=== PATIENT | male | born 1955 | race Caucasian/White ===

== ENCOUNTER → 2018-05-09 | Day surgery (SDC) | payer OTHER ==
[~2018-05-09] MED LIST: ASPIRIN ENTERI325 MG PO; ATENOLOL50 MG PO; CLONIDINE HCL0.2 MG PO; FENTANYL CITRATE/PF 100MCG/2 ML INJ ONE; GLUCOPHAGE1000 MG PO; HUMULIN-R100 UNITS/ SQ; HYDROCHLOROTHIA25 MG PO; HYDROCODONE/APAP 7.5MG-325MG 1 EA TAB ONE; JANUMET 50-1,01 EACH PO; KETAMINE HCL INJ 50 MG/ML 10 ML VIAL ONE; LANTUS100 UNITS/ SC; LIDOCAINE 1% W/EPINEPHRINE 20 ML VIAL ONE; LOSARTAN POTAS100 MG PO; LOSARTAN-HCTZ1 EAC1 PO; LYRICA50 MG PO; MIDAZOLAM HCL 2 MG/2 ML VIAL ONE; NORCO 5-325 TA1 EACH PO; NORVASC10 MG PO; PLAVIX75 MG PO; PROPOFOL IV EMULSION 10 MG/ML 20 ML VIAL ONE; TRESIBA FLEXTOUCH SQ; Z.0.CLEOCIN HCL300 M; Z.0.GLUCOPHAGE500 MG; Z.1.BENICAR HCT 401 PO; [UNRECOGNIZED DRUG - OTHER]
[2018-05-09 09:28] LABS: BASOPHILS # (AUTO) 0.2 (0.0-0.1); BASOPHILS % 1.2 % (0.0-1.0); EOSINOPHILS # (AUTO) 0.3 (0.0-0.4); EOSINOPHILS % 2.4 % (0.0-6.0); HEMATOCRIT 50.3 % (38.2-49.6); HEMOGLOBIN 16.9 g/dL (14.0-18.0); LYMPHOCYTES # (AUTO) 1.7 (1.0-3.2); LYMPHOCYTES % 14.1 % (18.0-39.1); MEAN CORPUSCULAR HEMOGLOBIN 31.9 pg (28-32); MEAN CORPUSCULAR HGB CONC 33.6 g/dL (31-35); MEAN CORPUSCULAR VOLUME 94.9 fL (81-99); MONOCYTES # (AUTO) 1.3 (0.2-0.8); MONOCYTES % 10.6 % (4.4-11.3); NEUTROPHILS # (AUTO) 8.6 (2.1-6.9); NEUTROPHILS % 70.6 % (38.7-80.0); PLATELET COUNT 215 x10e3/uL (140-360); RED CELL DISTRIBUTION WIDTH 12.6 % (11.7-14.4)
[2018-05-09 09:43] LABS: ANION GAP 16.1 mmol/L (8-16); CALCIUM 10.2 mg/dL (8.4-10.2); CREATININE, SERUM 1.49 mg/dL (0.72-1.25); POTASSIUM 4.1 mmol/L (3.5-5.1)
[2018-05-09 12:35] VITALS: BP 145/99
--- NOTE | 2018-05-09 13:33 | Operative Report ---
DATE OF PROCEDURE: May 09, 2018 PREOPERATIVE DIAGNOSIS: Infected cyst of the mid back. POSTOPERATIVE DIAGNOSIS: Infected cyst of the mid back. OPERATION PERFORMED: Incision and drainage of infected cyst of the mid back. ANESTHESIA: Local 1% Xylocaine and MAC. COMPLICATIONS: None. ESTIMATED BLOOD LOSS: Minimal. DESCRIPTION OF PROCEDURE: With the patient lying in bed in the lateral position, under good IV sedation, the back was prepped with Betadine solution and draped in the usual manner. The area of the cyst, which was about 5 x 6 cm in size, was then infiltrated with 1% Xylocaine solution. After this was done, a plug of skin in the center of the cyst was then excised all the way down into the cyst itself. Immediately, some purulent material and a lot of sebaceous content were obtained. All of this was aspirated and then completely debrided, and all of the necrotic material was removed. After this was done, hemostasis was ascertained. The wound was then irrigated with dilute Betadine solution and packed with half-inch iodoform gauze. A dressing was applied. The sponge, lap and needle count was correct. Patient tolerated the procedure well and returned to the recovery room in stable condition. Job#: [id number]
== END | disposition home or self-care (01) ==
LOC: OR 08:10
PROVIDERS: ATTEND Surgery
DX: L72.8 Other follicular cysts of the skin and subcutaneous tissue (principal); Z89.429 Acquired absence of other toe(s), unspecified side; G62.9 Polyneuropathy, unspecified; I10 Essential (primary) hypertension; E11.9 Type 2 diabetes mellitus without complications; N20.0 Calculus of kidney; Z88.2 Allergy status to sulfonamides; Z79.82 Long term (current) use of aspirin; Z79.4 Long term (current) use of insulin; Z86.73 Personal history of transient ischemic attack (TIA), and cerebral infarction without residual deficits
CPT/HCPCS: 10060; 36415; 80048; 82948; 85025; 93005; J2250; J2704

== ENCOUNTER 2018-11-26 13:19 | Inpatient (IN) | payer MEDICARE, OTHER ==
[~2018-11-26] VITALS: Ht 177.8 cm; Wt 96.8 kg
[~2018-11-26 13:19] MED LIST changes: -FENTANYL CITRATE/PF 100MCG/2 ML INJ ONE; -HYDROCODONE/APAP 7.5MG-325MG 1 EA TAB ONE; -KETAMINE HCL INJ 50 MG/ML 10 ML VIAL ONE; -LIDOCAINE 1% W/EPINEPHRINE 20 ML VIAL ONE; -MIDAZOLAM HCL 2 MG/2 ML VIAL ONE; -PROPOFOL IV EMULSION 10 MG/ML 20 ML VIAL ONE
[2018-11-26] MEDS ORDERED: SODIUM CHLORIDE 0.9% 1000ML 1,000 ML IV STA (13:33)
[2018-11-26 14:02] LABS: INR 0.9; PROTHROMBIN TIME 12.6 seconds (11.9-14.5)
[2018-11-26 14:03] LABS: PARTIAL THROMBOPLASTIN TIME 26.5 seconds (23.8-35.5)
[2018-11-26] MEDS ORDERED: FISH OIL 1,0001 EAC3 PO (14:10)
[2018-11-26 14:11] LABS: ALBUMIN 3.5 g/dL (3.5-5.0); ALBUMIN/GLOBULIN RATIO 0.8 (0.8-2.0); ANION GAP 15.9 mmol/L (8-16); CALCIUM 10.4 mg/dL (8.4-10.2); CREATININE, SERUM 1.32 mg/dL (0.72-1.25); POTASSIUM 3.9 mmol/L (3.5-5.1)
[2018-11-26 14:13] LABS: BASOPHILS # (AUTO) 0.1 (0.0-0.1); BASOPHILS % 0.8 % (0.0-1.0); EOSINOPHILS # (AUTO) 0.2 (0.0-0.4); EOSINOPHILS % 1.9 % (0.0-6.0); HEMATOCRIT 48.6 % (38.2-49.6); HEMOGLOBIN 15.8 g/dL (14.0-18.0); LYMPHOCYTES # (AUTO) 1.8 (1.0-3.2); MEAN CORPUSCULAR HEMOGLOBIN 31.3 pg (28-32); MEAN CORPUSCULAR HGB CONC 32.5 g/dL (31-35); MEAN CORPUSCULAR VOLUME 96.2 fL (81-99); MONOCYTES # (AUTO) 1.2 (0.2-0.8); MONOCYTES % 9.7 % (4.4-11.3); NEUTROPHILS # (AUTO) 8.7 (2.1-6.9); PLATELET COUNT 257 x10e3/uL (140-360); RED BLOOD COUNT 5.05 x10e6/uL (4.3-5.7); RED CELL DISTRIBUTION WIDTH 12.7 % (11.7-14.4)
[2018-11-26] MEDS: VANCOMYCIN 1GM/NS 250 ML 250 ML IV SCH (14:15)
[2018-11-26] MEDS ORDERED: ONDANSETRON HCL INJ 2MG/ML 2ML 2 MG/ML VIAL IV PRN (14:30)
[2018-11-26] MEDS ORDERED: DEXTROSE 50% SYRINGE 50 ML IV PRN (14:30)
--- NOTE | 2018-11-26 14:33 | Diagnostic Imaging Report ---
RIGHT FOOT - 3 Images HISTORY: Wound, preop COMPARISON: None available. FINDINGS: Bones: Status post indication of the fourth toe. Mild demineralization about the fifth metatarsophalangeal joint and at the head of the fourth metatarsal joint. The cortices of the lateral head of the fifth metatarsal bone, lateral base of the fifth proximal phalanx, and head of the fourth metatarsal bone are slightly indistinct. Joints: Minimal scattered degenerative changes. Soft tissues: Soft tissue swelling with defect at the lateral aspect of the forefoot at the level of the fifth metatarsophalangeal joint. IMPRESSION: Findings compatible with osteomyelitis involving the lateral head of the fifth metatarsal bone and questionable of the lateral base of the fifth proximal phalanx and head of the fourth metatarsal bone. A MRI of the forefoot with and without contrast may be obtained to further evaluate the extent of osteomyelitis. Signed by: Dr. Phi Pennington D.O., M.M.M. on 11/26/2018 2:30 PM
--- NOTE | 2018-11-26 14:35 | Diagnostic Imaging Report ---
A single frontal view of the chest. HISTORY: PRE-OP, wound COMPARISON: None available. DISCUSSION: Portable technique, limits sensitivity of the exam. Soft tissue attenuation partially limits sensitivity of the exam. Tubes/Lines: None Lungs and pleura: Low lung volumes result in bibasilar vascular crowding, accentuation of the pulmonary interstitial markings, central pulmonary vasculature, and the cardiac silhouette. Allowing for these limitations, the findings are as follows: No evidence of a consolidative pneumonia or pulmonary alveolar edema. No definite pleural effusion or pneumothorax is identified. Heart and mediastinum: The cardiomediastinal silhouette appears unremarkable. Bones and soft tissues: Appear unremarkable, given this limited exam. IMPRESSION: No acute radiographic abnormality. Signed by: Dr. Phi Pennington D.O., M.M.M. on 11/26/2018 2:31 PM
--- OUTSIDE RECORDS SUMMARY | 2018-11-26 14:50 | XMS REPORT ---
Author Author [facility] Address Unknown Phone Unavailable Care Team Providers Care Engineering Equipment Operator Name Role Phone Lorraine DE LEON Unavailable Unavailable Problems This patient has no known problems. Allergies, Adverse Reactions, Alerts This patient has no known allergies or adverse reactions. Medications This patient has no known medications. Results Test Description Test Time Test Comments Text Results Atomic Results Result Comments CHEST SINGLE (PORTABLE) 2018-11-26 14:30:00 [place] [address] Patient Name: KEE MCFADDEN MR #: [id number] : 1955 Age/Sex: 63/M Req #: [id number] Adm Physician: Ordered by: ABDOUL DE LEON MD Report #: [id number] Location: ER Room/Bed: Procedure: [id number] DX/CHEST SINGLE (PORTABLE) Exam Date: 11/26/18 Exam Time: 1400 REPORT STATUS: Signed A single frontal view of the chest. HISTORY: PRE- OP, wound COMPARISON: None available. DISCUSSION: Portable technique, limits sensitivity of the exam. Soft tissue attenuation partially limits sensitivity of the exam. Tubes/Lines: None Lungs and pleura: Low lung volumes result in bibasilar vascular crowding, accentuation of the pulmonary interstitial markings, central pulmonary vasculature, and the cardiac silhouette. Allowing for these limitations, the findings are as follows: No evidence of a consolidative pneumonia or pulmonary alveolar edema. No definite pleural effusion or pneumothorax is identified. Heart and mediastinum: The cardiomediastinal silhouette appears unremarkable. Bones and soft tissues: Appear unremarkable, given this limited exam. IMPRESSION: No acute radiographic abnormality. Signed by: Dr. Lenny Pennington D.O., M.M.M. on 11/26/2018 2:31 PM Dictated By: LENNY PENNINGTON DO 1431 Tr anscribed By: WALE on 11/26/18 1431 COPY TO: ABDOUL DE LEON MD FOOT RIGHT COMPLETE 2018-11-26 14:26:00 [place] [address] Patient Name: KEE MCFADDEN MR #: [id number] : 1955 Age/Sex: 63/M Req #: [id number] Adm Physician: Ordered by: ABDOUL DE LEON MD Report #: [id number] Location: ER Room/Bed: Procedure: [id number] DX/FOOT RIGHT COMPLETE Exam Date: 11/26/18 Exam Time: 1400 REPORT STATUS: Signed RIGHT FOOT - 3 Images HISTORY: Wound, preop COMPARISON: None available. FINDINGS: Bones: Status post indication of the fourth toe. Mild demineralization about the fifth metatarsophalangeal joint and at the head of the fourth metatarsal joint. The cortices of the lateral head of the fifth metatarsal bone, lateral base of the fifth proximal phalanx, and head of the fourth metatarsal bone are slightly indistinct. Joints: Minimal scattered degenerative changes. Soft tissues: Soft tissue swelling with defect at the lateral aspect of the forefoot at the level of the fifth metatarsophalangeal joint. IMPRESSION: Findings compatible with osteomyelitis involving the lateral head of the fifth metatarsal bone and questionable of the lateral base of the fifth proximal phalanx and head of the fourth metatarsal bone. A MRI of the forefoot with and without contrast may be obtained to further evaluate the extent of osteomyelitis. Signed by: Dr. Lenny Pennington D.O., M.M.M. on 11/26/2018 2:30 PM Dictated By: LENNY PENNINGTON DO 1430 Transcribed By: WALE on 11/26/18 1430 COPY TO: ABDOUL DE LEON MD
[2018-11-26 15:59] LABS: BILIRUBIN,URINE NEGATIVE (NEGATIVE); CLARITY,URINE CLEAR (CLEAR); COLOR,URINE YELLOW (YELLOW); KETONES,URINE 1+ (NEGATIVE); LEUKOCYTE ESTERASE ,URINE NEGATIVE (NEGATIVE); NITRITE,URINE NEGATIVE (NEGATIVE); PROTEIN,URINE DIPSTICK 2+ (NEGATIVE); URINE UROBILINOGEN 1 mg/dL (0.2 - 1)
[2018-11-26 16:01] VITALS: BP 175/86
[2018-11-26 16:09] LABS: EPITHELIAL CELLS,URINE FEW /LPF; RBC,URINE 0-5 /HPF (0-5); WBC,URINE (MAN) 0-5 /HPF (0-5)
[2018-11-26 16:15] VITALS: BP 175/86
[2018-11-26] MEDS: PIPER-TAZ 3.375 GM 50 ML IV SCH ×2 (16:34→17:16)
[2018-11-26] MEDS: SODIUM CHLORIDE 0.9% 1000ML 1,000 ML IV SCH (16:34)
[2018-11-26 16:40] VITALS: BP 175/86
[2018-11-26] MEDS: INSULIN LISPRO 100 UNIT/1 ML 3ML VIAL SQ SCH ×2 (16:43→22:00)
[2018-11-26] MEDS ORDERED: LOSARTAN POTASS25 MG PO (17:02)
[2018-11-26] MEDS ORDERED: HYDROCHLOROTHIA25 MG PO (17:03)
--- NOTE | 2018-11-26 19:10 | NUR ---
RECEIVED REPORT FROM PREVIOUS NURSE. CALL LIGHT WITHIN REACH. PATIENT IN BED.
[2018-11-26] MEDS: MORPHINE SULFATE INJ 4 MG/ML INJ 1ML IV PRN (19:52)
[2018-11-26 19:58] VITALS: BP 144/68
[2018-11-27] VITALS (8 sets, daily range): BP systolic 131–191; BP diastolic 63–85
[2018-11-27] MEDS: PIPER-TAZ 3.375 GM 50 ML IV SCH ×4 (00:19→17:43)
[2018-11-27] MEDS: SODIUM CHLORIDE 0.9% 1000ML 1,000 ML IV SCH (02:35)
[2018-11-27] MEDS: VANCOMYCIN 1GM/NS 250 ML 250 ML IV SCH ×2 (02:36→15:00)
[2018-11-27 05:25] LABS: BASOPHILS # (AUTO) 0.1 (0.0-0.1); BASOPHILS % 1.1 % (0.0-1.0); EOSINOPHILS # (AUTO) 0.2 (0.0-0.4); HEMATOCRIT 43.1 % (38.2-49.6); HEMOGLOBIN 14.1 g/dL (14.0-18.0); LYMPHOCYTES # (AUTO) 0.8 (1.0-3.2); LYMPHOCYTES % 7.4 % (18.0-39.1); MEAN CORPUSCULAR HEMOGLOBIN 31.6 pg (28-32); MEAN CORPUSCULAR HGB CONC 32.7 g/dL (31-35); MEAN CORPUSCULAR VOLUME 96.6 fL (81-99); MONOCYTES % 9.5 % (4.4-11.3); NEUTROPHILS # (AUTO) 8.3 (2.1-6.9); NEUTROPHILS % 79.4 % (38.7-80.0); PLATELET COUNT 209 x10e3/uL (140-360); RED BLOOD COUNT 4.46 x10e6/uL (4.3-5.7); RED CELL DISTRIBUTION WIDTH 12.6 % (11.7-14.4)
[2018-11-27 05:37] LABS: ANION GAP 9.8 mmol/L (8-16); BLOOD UREA NITROGEN 20 mg/dL (7-26); BUN/CREATININE RATIO 18 (6-25); CALCIUM 9.1 mg/dL (8.4-10.2); CARBON DIOXIDE 25 mmol/L (22-29); CHLORIDE 108 mmol/L (98-107); CREATININE, SERUM 1.11 mg/dL (0.72-1.25); EST GLOMERULAR FILTRATION RATE > 60 ML/MIN (60-); GLUCOSE 73 mg/dL (74-118); POTASSIUM 3.8 mmol/L (3.5-5.1); SODIUM 139 mmol/L (136-145)
--- NOTE | 2018-11-27 07:08 | NUR ---
Gave report to oncoming nurse. Patient is in bed. Call light within reach
[2018-11-27] MEDS: INSULIN LISPRO 100 UNIT/1 ML 3ML VIAL SQ SCH ×4 (07:30→21:00)
[2018-11-27] MEDS ORDERED: NIFEDIPINE CR 30 MG TAB PO ONE (09:30)
[2018-11-27] MEDS: HYDROCODONE/APAP 5MG-325MG TAB PO PRN ×2 (10:05→17:58)
[2018-11-27] MEDS ORDERED: CHOLESTYRAMINE 4 GM PACKET PO PRN (15:45)
--- NOTE | 2018-11-27 16:46 | History and Physical ---
PRIMARY CARE PHYSICIAN: Coleman Merida MD. BRANCH OFFICE ADMINISTRATOR: Husam Mulligan DPM. CHIEF COMPLAINT: Right infected diabetic foot ulcer, failed outpatient treatment. HISTORY OF PRESENT ILLNESS: A 63-year-old male, who has been going on with the right foot infected diabetic foot ulcer, started as a small lesion and progressed to an ulcer associated with right foot infection and swelling. The patient failed outpatient treatment with oral antibiotics. The patient is now in the hospital with profound infection of the right foot with diabetic foot ulcer, open wound. There is redness along the wound on the superior lateral side of the right foot. The patient is admitted. He has not have any circulation workup for his right lower extremity. Baseline, the patient does have diabetes and hypertension. He is stable at this time on IV antibiotic Zosyn and vancomycin. The patient is seen by Dr. Husam Mulligan, Podiatry consultation. PAST MEDICAL HISTORY: Infected diabetic foot ulcer ongoing for the past month, failed outpatient treatment with oral antibiotics, hypertension, dyslipidemia and diabetes type 2, on insulin therapy, and diabetic neuropathy. PAST SURGICAL HISTORY: Amputation of the right 4th toe. SOCIAL HISTORY: The patient does not smoke or use alcohol. No recreational drugs. ALLERGIES: TO SULFA. HOME MEDICATIONS: Aspirin, HCTZ, [place], losartan, omega-3 fatty acid, Lyrica, and Tresiba FlexTouch. PHYSICAL EXAMINATION: VITAL SIGNS: Temperature is 99, blood pressure 191/85, pulse rate 80, and respirations 22. GENERAL: The patient is not in acute distress. He is awake. HEENT: Normocephalic and atraumatic. Anicteric. NECK: Supple grossly. PULMONARY: Diminished breath sounds, but without any wheezing or rales. CARDIOVASCULAR: Regular rate and rhythm. ABDOMEN: Soft. EXTREMITIES: Right infected diabetic foot ulcer on the lateral superior foot area associated with surrounding redness. There is erythema all up to the lateral dorsal surface of the ankle. There is an open wound and ulcer with infection and drainage. NEUROLOGIC: Diabetic neuropathy. LABORATORY DATA: Sodium 139, potassium 3.8, chloride 108, bicarb 25, BUN 20, creatinine 1.1, and glucose 73. WBC 10.4, hemoglobin 14, hematocrit 43, and platelets 209. PT 12.6, INR 0.9, PTT 26.5, and liver enzymes unremarkable. IMPRESSION: 1. Infected diabetic foot ulcer on the right foot with open wound, surrounding erythema, redness traveling up to the ankle area, associated with diabetes, on insulin therapy, failed outpatient treatment with oral antibiotics. 2. Chronic venous skin changes of bilateral lower extremity. PLAN: IV antibiotics. Circulation workup with ultrasound. Consultation with Dr. Esquivel for circulation evaluation. Consultation with Dr. Husam Mulligan. Continue with wound care. The patient will need surgical intervention. MD BRIDGETT Dubose/CARLEE /[id number]
--- NOTE | 2018-11-27 16:47 | NUR ---
WOUND CARE CONSULTATION - INITIAL EVALUATION Patient admitted from home to ER for worsening wound to right foot. DX: Infected DFU, Right Foot Cellulitis. WBC10.43 HGB14.1 HCT43.1 NEUT%79.4 HBA1c8.8 Alb3.5 Foot X-Ray = Compatible Findings for Osteomyelitis of Lateral head of 5th Metatarsal and 4th metatarsal. Lower Extremity US - Possible evidence of arterial stenosis. BLE Calcification. RLE -MONIKA Distal Absent Waveforms. Wound Culture - Gram + Cocci and Gram Neg Bacilli present - Susceptibility report pending. WC Consulted for Right Lateral Foot wound evaluation and recommendation. Noted Dr. Husam Mulligan DPRicky on the case and pt awaiting evaluation PATIENT VISIT: Patient AAOX4. Calm and in good spirits. Resting in bed. Able to turn and reposition self. Flaco Score 20. Presents with oval ulceration [id number] with 80% tissue necrosis. and 20% granular tissue. Area swollen with redness streaking to dorsal and plantar aspects of mid foot. Purulent drainage noted. Patient on IV ABX. Pulses difficult to palpate, faint. Tenderness to base of wound upon touch. Wound measurements and additional information documented on Wound Assessment portion and is linked to this note. Flaco Score 20 Up ad marlon IMPRESSION; Right Foot 5th Met Head - DFU Grade 3 RECOMMENDATION: Right Lateral Foot - 5th met head- DFU Grade 3: - Irrigate and Cleanse wound with NSS and 4x4 gauze - Apply Betadine moistened gauze dressing daily until evaluated by Husam Esparza. DPM. Thank you for consulting with Wound Care. Addendum: 11/27/18 at 1706 by Avni Lewis RN Amended: Links added.
[2018-11-27] MEDS: OMEGA 3 POLYUNSAT FATTY ACIDS 1000 MG SOFTGEL PO SCH (17:43)
--- NOTE | 2018-11-27 19:20 | NUR ---
rounded with night shift supervisor nurse, patient resting comfortably and in no distress. call medellin within reach and bed in lowest position.
--- NOTE | 2018-11-27 19:56 | NUR ---
RECEIVED PT IN BED AOX3 PT HAS DRESSING AT THE RT FOOT .DENIES PAIN AT THIS TIME RESPIRATIONS ARE EVEN AND UNLABORED .CALL LIGHT WITH IN REACH .CONTINUE TO MONITOR
[2018-11-27] MEDS ORDERED: TRESIBA 20 UNIT SQ SCH (21:00)
[2018-11-27] MEDS: TRESIBA 20 UNIT SQ SCH (21:00)
[2018-11-27] MEDS: PREGABALIN 50 MG CAP PO SCH (21:00)
--- NOTE | 2018-11-27 23:52 | Consultation ---
DATE OF CONSULTATION: 11/27/2018 Cardiology Consultation REQUESTING PHYSICIAN: Dr. Anaya. REASON FOR CONSULTATION: Peripheral arterial disease. HISTORY OF PRESENT ILLNESS: This is a 63-year-old male with history of hypertension, hyperlipidemia, and diabetes mellitus, who presents with complaints of worsening right foot wound. The patient reports he had a blister on the lateral aspect of his right foot, which progressed to an ulcer. This has been ongoing for the last month. He was on outpatient oral antibiotics. However, yesterday he reported the swelling worsened with erythema and presented to the ER for further evaluation. He denies any chest pain, shortness of breath, palpitations, edema, orthopnea, or PND. Cardiology is consulted for evaluation of his peripheral vasculature. REVIEW OF SYSTEMS: Negative except as per HPI. PAST MEDICAL HISTORY: 1. Hypertension. 2. Hyperlipidemia. 3. Diabetes mellitus with diabetic neuropathy. PAST SURGICAL HISTORY: 1. Amputation of his right 4th toe. 2. Right leg surgery secondary to trauma. ALLERGIES: PLEASE SEE EMR. MEDICATIONS: Please see medication list. SOCIAL HISTORY: Denies tobacco, alcohol, or illicit drugs. FAMILY HISTORY: No family history of heart disease. PHYSICAL EXAMINATION: VITAL SIGNS: Temperature 97.8, pulse 82, respiratory rate 20, blood pressure 169/85, and oxygen saturation 97% on room air. GENERAL: Well-developed, well-nourished man in no distress. Awake and alert. HEENT: Normocephalic and atraumatic. Pupils equal. No scleral icterus. NECK: Supple. No thyromegaly or cervical lymphadenopathy. No carotid bruits. LUNGS: Clear to auscultation bilaterally. No wheezes or crackles. CARDIOVASCULAR: Normal rate. Regular rhythm. No murmur. Normal S1, S2. ABDOMEN: Soft, nontender. EXTREMITIES: No edema. Dressing present on the right foot. NEUROLOGIC: Nonfocal exam. LABORATORY DATA: WBC 10.43, hemoglobin 14.1, hematocrit 43.1, and platelets 209. Sodium 139, potassium 3.8, chloride 108, CO2 of 25, BUN 20, and creatinine 1.11. EKG, normal sinus rhythm. Inferior infarct, age undetermined. IMPRESSION: 1. Infected diabetic foot ulcer. 2. Diabetes mellitus. 3. Hypertension. 4. Hyperlipidemia. RECOMMENDATIONS: Ultrasound of bilateral lower extremities have been done. Preliminary review of images suggests occlusion of the distal right anterior tibial artery with distal reconstitution. Recommend peripheral angiogram for further evaluation, likely Tuesday due to lack of catheter builder availability. In the meantime if the patient's blood pressure is not well controlled, resume home cardiac medications likely to need further titration of ARB, we will monitor response to current changes. Thank you for this consult. We will continue to follow. Jaycee Odonnell MD ABS/MODL /[id number]
[2018-11-28 00:23] VITALS: BP 137/80
[2018-11-28] MEDS: PIPER-TAZ 3.375 GM 50 ML IV SCH ×4 (00:41→21:53)
--- NOTE | 2018-11-28 01:53 | Consultation ---
DATE OF CONSULTATION: 11/27/2018 HISTORY OF PRESENT ILLNESS: The patient decided to present to the ED secondary to increasing swelling and erythema associated with right foot with a chronic diabetic ulceration of the lateral aspect of the forefoot. I have been following him to monitor the patient as outpatient, and recently within the past week, he did convey via telephone conversation that the area oozing and the increasing in erythema and thus antibiotics were called in. Apparently, this continued to progress negatively and thus he presented to the ED at this point for further evaluation and recommendations. PAST MEDICAL HISTORY: Remarkable for diabetes mellitus, dyslipidemia, hypertension, and dilated peripheral neuropathy. PAST SURGICAL HISTORY: Right foot fourth digit amputation. SOCIAL HISTORY: Denies any alcohol, tobacco, or illicit drug abuse. ALLERGIES: TO SULFA. HOME MEDICATIONS: Please MAR for current medication list. PHYSICAL EXAMINATION: VITAL SIGNS: Stable. He is afebrile. GENERAL: Alert and oriented x3, and is not in acute distress. HEENT: Normocephalic and atraumatic. Anicteric. ABDOMEN: Soft, nontender, and nondistended. RESPIRATORY: Symmetrical expansion. No distress. PSYCHIATRIC: Normal affect. EXTREMITIES: Indeed, there is erythema associated with right forefoot with faint, but palpable pulses, erythema encompassing the forefoot, particularly lateral aspect of the forefoot progressing out for the midfoot or slightly to the hind foot laterally. There is indeed an ulceration on the lateral aspect of the foot, the plantar lateral aspect overlying the fifth metatarsal head region with some capsular exposure associated with interactive drainage. DIAGNOSTIC DATA: X-rays are consistent with osteomyelitis, seems to be direct inoculation with the proximal phalanx involved as well as the metatarsal head. LABORATORY DATA: Hemoglobin A1c is 8.8. He was admitted with white blood cell counts of 12.04 and now with 10.43. ASSESSMENT: 1. Diabetic foot infection. 2. Diabetic ulceration. 3. Peripheral neuropathy. 4. Septic ulcers. PLAN: Proceed with IV antibiotics. Offloading local wound care, Betadine wet to dry, further recommendations to follow. Ultimately, may need metatarsal head resection. At this point, this will be a pending clinical course perhaps long-term IV antibiotics and local wound care offloading. Again, further recommendation to follow pending clinical course. VIK Garsia/MODL /[id number]
[2018-11-28] MEDS: HYDROCODONE/APAP 5MG-325MG TAB PO PRN ×2 (02:30→21:51)
[2018-11-28] MEDS: VANCOMYCIN 1GM/NS 250 ML 250 ML IV SCH ×2 (04:00→15:00)
[2018-11-28 04:42] VITALS: BP 137/72
[2018-11-28] MEDS: NIFEDIPINE CR 30 MG TAB PO SCH ×2 (06:00→09:07)
[2018-11-28 06:28] LABS: BASOPHILS # (AUTO) 0.1 (0.0-0.1); BASOPHILS % 1.7 % (0.0-1.0); EOSINOPHILS # (AUTO) 0.7 (0.0-0.4); EOSINOPHILS % 9.1 % (0.0-6.0); HEMOGLOBIN 13.5 g/dL (14.0-18.0); LYMPHOCYTES # (AUTO) 1.2 (1.0-3.2); LYMPHOCYTES % 15.7 % (18.0-39.1); MEAN CORPUSCULAR HEMOGLOBIN 31.7 pg (28-32); MEAN CORPUSCULAR HGB CONC 33.8 g/dL (31-35); MEAN CORPUSCULAR VOLUME 93.9 fL (81-99); MONOCYTES # (AUTO) 0.8 (0.2-0.8); MONOCYTES % 10.3 % (4.4-11.3); NEUTROPHILS # (AUTO) 4.9 (2.1-6.9); NEUTROPHILS % 62.7 % (38.7-80.0); PLATELET COUNT 229 x10e3/uL (140-360); RED BLOOD COUNT 4.26 x10e6/uL (4.3-5.7); RED CELL DISTRIBUTION WIDTH 12.5 % (11.7-14.4)
[2018-11-28 06:43] LABS: ANION GAP 8.5 mmol/L (8-16); BLOOD UREA NITROGEN 13 mg/dL (7-26); BUN/CREATININE RATIO 14 (6-25); CALCIUM 9.2 mg/dL (8.4-10.2); CARBON DIOXIDE 26 mmol/L (22-29); CHLORIDE 106 mmol/L (98-107); CREATININE, SERUM 0.91 mg/dL (0.72-1.25); EST GLOMERULAR FILTRATION RATE > 60 ML/MIN (60-); GLUCOSE 72 mg/dL (74-118); POTASSIUM 3.5 mmol/L (3.5-5.1); SODIUM 137 mmol/L (136-145)
--- NOTE | 2018-11-28 07:16 | NUR ---
pt alert resp even and unlabored at this time, no distress noted pt able to make needs known. call light in reach.
--- NOTE | 2018-11-28 07:29 | NUR ---
PT RESTED DURING THE NIGHT .C/O PAIN AND GIVEN ORDERED PAIN MEDICATION VANCO TROUGH IS 14 .GIVEN VANCOMYCIN .CALL LIGHT WITH IN REACH .CONTINUE TO MONITOR
[2018-11-28] MEDS: INSULIN LISPRO 100 UNIT/1 ML 3ML VIAL SQ SCH ×4 (07:30→21:00)
--- NOTE | 2018-11-28 07:39 | NUR ---
REPORT GIVEN TO THE ONCOMING NURSE
--- NOTE | 2018-11-28 07:39 | NUR ---
REPORT GIVEN TO THE ONCOMING NURSE
[2018-11-28 07:55] VITALS: BP 152/77
[2018-11-28] MEDS: TRESIBA 25 UNIT SQ SCH (09:00)
[2018-11-28] MEDS ORDERED: TRESIBA 25 UNIT SQ SCH (09:00)
[2018-11-28] MEDS ORDERED: LOSARTAN POTASSIUM 25 MG TAB PO SCH (09:00)
[2018-11-28] MEDS ORDERED: LOSARTAN POTASSIUM 100 MG TAB PO SCH (11:15)
[2018-11-28 12:02] VITALS: BP 143/74
[2018-11-28] MEDS ORDERED: ONDANSETRON HCL 4 MG ORAL DISINTEGRATING TAB PO PRN (13:15)
--- NOTE | 2018-11-28 13:15 | Progress Note ---
DATE: 11/28/2018 Cardiology Progress Note SUBJECTIVE: The patient denies chest pain or shortness of breath. OBJECTIVE: VITAL SIGNS: Temperature 97 degrees, pulse 71, respiratory rate 18, blood pressure 152/77, oxygen saturation 98% on room air. GENERAL: Awake, alert, in no acute distress. LUNGS: Clear to auscultation bilaterally. No wheeze or crackles. CARDIOVASCULAR: Normal rate. Regular rhythm. No murmur. Normal S1, S2. ABDOMEN: Soft, nontender. EXTREMITIES: No edema. Dressing present on the right foot. CARDIAC MEDICATIONS: Nifedipine 30 mg p.o. daily, losartan 50 mg p.o. daily, fish oil 2000 mg p.o. daily. LABORATORY DATA: WBC 7.79, hemoglobin 13.5, hematocrit 40, platelets 229. Sodium 137, potassium 3.5, chloride 106, CO2 of 26, BUN 13, creatinine 0.91, hemoglobin A1c 8.6. IMPRESSION: 1. Infected diabetic foot ulcer. 2. Diabetes mellitus. 3. Hypertension. 4. Hyperlipidemia. 5. Peripheral arterial disease. RECOMMENDATIONS: Ultrasound of bilateral lower extremity arteries was suggestive of distal MONIKA occlusion with distal reconstitution. Recommend peripheral angiogram for further evaluation likely tomorrow. The patient's antihypertensive therapy has been restarted, but he remains hypertensive. Increase losartan given his diabetes mellitus. Thank you for this consult. We will continue to follow. Jaycee Odonnell MD ABS/MODL /[id number]
[2018-11-28 15:58] VITALS: BP 135/81
[2018-11-28] MEDS: OMEGA 3 POLYUNSAT FATTY ACIDS 1000 MG SOFTGEL PO SCH (16:45)
--- NOTE | 2018-11-28 19:23 | NUR ---
report given to oncoming nurse, pt stable at shift change.
--- NOTE | 2018-11-28 20:11 | NUR ---
RECEIVED PT IN BED AOX3 .RESPIRATIONS ARE EVEN AND UNLABORED PT IS GETTING IV ABT .CALL LIGHT WITH IN REACH .CONTINUE TO MONITOR
[2018-11-28 20:23] VITALS: BP 133/73
[2018-11-28] MEDS: TRESIBA 20 UNIT SQ SCH (21:00)
[2018-11-28] MEDS: PREGABALIN 50 MG CAP PO SCH (21:56)
[2018-11-29] VITALS (14 sets, daily range): BP systolic 120–171; BP diastolic 62–115
[2018-11-29] MEDS: PIPER-TAZ 3.375 GM 50 ML IV SCH ×4 (02:00→22:20)
[2018-11-29] MEDS: VANCOMYCIN 1GM/NS 250 ML 250 ML IV SCH ×2 (03:00→15:00)
--- NOTE | 2018-11-29 07:23 | NUR ---
REPORT GIVEN TO THE ONCOMING NURSE
[2018-11-29] MEDS: INSULIN LISPRO 100 UNIT/1 ML 3ML VIAL SQ SCH ×4 (07:30→20:54)
[2018-11-29] MEDS: TRESIBA 25 UNIT SQ SCH (09:00)
[2018-11-29] MEDS: NIFEDIPINE CR 30 MG TAB PO SCH (09:00)
[2018-11-29] MEDS: LOSARTAN POTASSIUM 25 MG TAB PO SCH (09:00)
[2018-11-29] MEDS ORDERED: FENTANYL CITRATE/PF 100MCG/2 ML INJ ONE ×2 (14:02→17:15)
[2018-11-29] MEDS ORDERED: LIDOCAINE HCL 2% LOCAL 20 ML VIAL ONE ×2 (14:02→16:04)
[2018-11-29] MEDS ORDERED: HEPARIN SOD/SOD CHLORIDE 2,000 ML ONE (14:02)
[2018-11-29] MEDS ORDERED: MIDAZOLAM HCL 2 MG/2 ML VIAL ONE ×3 (14:02→17:14)
[2018-11-29] MEDS ORDERED: SODIUM CHLORIDE 0.9% 1000ML 1,000 ML ONE (14:03)
[2018-11-29] MEDS ORDERED: IOPAMIDOL 300MG/ML 100 ML INFUS..BTL IV ONE (14:03)
[2018-11-29] MEDS ORDERED: HEPARIN SOD (PORCINE) 1000 UNIT/ML 30ML ONE (16:49)
--- NOTE | 2018-11-29 17:45 | NUR ---
1745 Icu bed ordered for pt transfer high risk bleed Dr isma Saunders Rn Supv notified. Bed disposition 192 awaiting clean. ds/rn
--- NOTE | 2018-11-29 18:15 | NUR ---
181 received pt to Rm #[address] Jaramillo no fix, Left# 6 Fr Arterial line .Last ACT 310 .Next due at 1900. Needs 6hrs bedrest post pull when act lower 160. Rt Femoral sheath 4FR remains in place till PICC line placed. Back to baseline Orientation.Respiration shallow and regular 98% room air. Pt from room #289 going to rm 192. Floor staff informed to gather pt belongings. Pt denies CP or SOB No gross issues pain, pallor pressure or dysrhythmia. Abdomen soft and non tender Denies necessity to defecate or urinate. PPx4 DP/Pd rt Doppler present 1++ Left leg Doppler 2++. 1844 called report to [facility] Transferred to IC per bed vs stable and zoll monitor No gross issue pain pallor or pressure Awaiting PICC line arrival for venous access RT vein sheath to stay in place till arrival. Pt will notify family on arrival to ICU when he has their phone number. ds/rn
--- NOTE | 2018-11-29 19:15 | NUR ---
Pt arrived to ICU from [facility], pt has left arterial sheath and right venous sheath in place. Order for PICC line in computer, consent signed. Pt blood sugar 63, pt AAO x4, states feels fine other than sore back. Pt given orange juice, pt will eat once arterial sheath pulled. Will continue to monitor.
[2018-11-29] MEDS: HYDROCODONE/APAP 5MG-325MG TAB PO PRN (19:34)
--- NOTE | 2018-11-29 20:07 | NUR ---
ACT 200 @20:00
--- NOTE | 2018-11-29 20:12 | Progress Note ---
DATE: 11/29/2018 Cardiology Progress Note SUBJECTIVE: The patient denies chest pain or shortness of breath. OBJECTIVE: VITAL SIGNS: Temperature 97.8 degrees, pulse 86, respiratory rate 18, blood pressure 152/79, and oxygen saturation 98% on room air. GENERAL: Awake and alert, in no acute distress. LUNGS: Clear to auscultation bilaterally. No wheezes or crackles. CARDIOVASCULAR: Normal rate. Regular rhythm. No murmur. Normal S1 and S2. ABDOMEN: Soft and nontender. EXTREMITIES: No edema. Dressing is present on the right foot. CARDIAC MEDICATIONS: 1. Fish oil 2000 mg p.o. daily. 2. Losartan 100 mg p.o. daily. 3. Nifedipine 30 mg p.o. daily. LABORATORY DATA: None today. IMPRESSION: 1. Type 2 diabetic foot ulcer. 2. Diabetes mellitus. 3. Hypertension. 4. Hyperlipidemia. 5. Peripheral arterial disease. RECOMMENDATIONS: Ultrasound of bilateral lower extremity arteries was suggestive of occlusion of the distal MONIKA with reconstitution in the DPA. Recommend peripheral angiogram for further evaluation. Risks and benefits were discussed with the patient, who agrees to proceed. The patient remains hypertensive. However, he has not received his antihypertensive therapy today in preparation for peripheral angiogram. We will monitor blood pressure response. Continue current cardiac medications otherwise. Thank you for this consult. We will continue to follow. Jaycee Odonnell MD ABS/MODL /[id number]
[2018-11-29] MEDS: OMEGA 3 POLYUNSAT FATTY ACIDS 1000 MG SOFTGEL PO SCH (20:13)
[2018-11-29] MEDS: PREGABALIN 50 MG CAP PO SCH (20:53)
[2018-11-29] MEDS: TRESIBA 20 UNIT SQ SCH (21:00)
--- NOTE | 2018-11-29 21:35 | NUR ---
ACT 160 @ 21:30
--- NOTE | 2018-11-29 22:13 | NUR ---
ACT 160 @ 2130. @ 2150 Sheath dcd. Manual pressure held x 12 min with hemostasis. No signs of bleeding or hematoma. Pressure drsg applied.
--- NOTE | 2018-11-29 22:43 | Progress Note ---
DATE: 11/29/2018 Medicine Progress Note Covering for Dr. Anaya. SUBJECTIVE: The patient underwent a right lower extremity angiogram, had some stenosis in the right lower extremity and around the anterior tibia and it was unsuccessful. It seems like the patient had a right ankle injury many years ago, most likely the etiology of that particular issue. OBJECTIVE: VITAL SIGNS: Temperature is 96.1, pulse 80, respiratory rate 17, blood pressure 133/93, pulse ox 99% on room air. GENERAL: Not in acute distress, alert and oriented x3. Cooperative on examination. HEENT: Normocephalic and atraumatic. Eyes; pupils are equal, round, and reactive to light bilaterally. Extraocular movements are intact bilaterally. Throat, no evidence of any erythema or exudates in the posterior pharynx. Has poor dentition. NECK: Supple. Good range of motion PULMONARY: Clear to auscultation bilaterally. No wheezing. No rales. No rhonchi. No crackles appreciated. CARDIOVASCULAR: Positive S1 and S2. No murmurs, rubs, or gallops appreciated. ABDOMEN: Soft, nondistended, and nontender to palpation. Bowel sounds present. MUSCULOSKELETAL: Strength is 5/5 throughout. No evidence of any muscle deficits on examination. NEUROLOGIC: Cranial nerves II through XII grossly intact. No evidence of any muscle deficits on examination. SKIN: Intact. Warm to touch. Good cap refill. PSYCHIATRIC: Normal affect and mood. EXTREMITIES: No edema. Good range of motion throughout. LABORATORY DATA: Lab findings show white count 7.7, hemoglobin 13.5, hematocrit is 40, and platelets of 229. Coagulation; PT 12, INR 0.9, PTT 26. Chemistry; sodium 137, potassium is 3.5, chloride is 106, bicarbonate is 26, anion gap is 8, BUN is 13, creatinine is 0.91, glucose is 64. A1c is 8.6. LFTs were within normal range. MICROBIOLOGY: Wound culture positive for Pseudomonas. Blood cultures, no growth to date. IMPRESSION: 1. Diabetic foot ulcer, infected. 2. Type 2 diabetes. 3. Hypertension. 4. Hyperlipidemia. 5. Severe peripheral arterial disease. PLAN: At this time, the patient underwent angiogram of the right lower extremity, had some occlusion in the anterior tibial, which seems to be unsuccessful according to Cardiology. We will continue with IV antibiotics for now. Local wound care. ID and Cardiology are following closely. Podiatry is also monitoring him as well. Continue same plan of care with no changes. Otherwise, we will get a.m. labs and monitor closely. MD PATSY Granda/CARLEE /[id number]
--- NOTE | 2018-11-29 23:21 | Diagnostic Imaging Report ---
EXAMINATION: CHEST XRAY LINE PLACEMENT INDICATION: PICC placement ^[id number] ^[id number] COMPARISON: 11/26/2018. FINDINGS: TUBES and LINES: Right upper extremity PICC with distal tip projected on the cavoatrial junction. LUNGS: Lungs are hyperinflated. Lungs are clear. There is no evidence of pneumonia or pulmonary edema. PLEURA: No pleural effusion or pneumothorax. HEART AND MEDIASTINUM: The cardiomediastinal silhouette is unremarkable. BONES AND SOFT TISSUES: No acute osseous lesion. Small exostosis off the inferior aspect of the mid left clavicle. UPPER ABDOMEN: No free air under the diaphragm. IMPRESSION: Right upper extremity PICC with distal tip projected on the cavoatrial junction. Signed by: Dr. Henrry Sanchez M.D. on 11/29/2018 11:18 PM
--- NOTE | 2018-11-29 23:24 | NUR ---
PICC line inserted by PICC nurse. Placement confirmed by Xray.
[2018-11-30] VITALS (18 sets, daily range): BP systolic 119–163; BP diastolic 72–100
[2018-11-30] MEDS: HYDROCODONE/APAP 5MG-325MG TAB PO PRN ×3 (00:25→17:40)
--- NOTE | 2018-11-30 00:27 | NUR ---
PICC line ok to use per PICC nurse order. Venous sheath pulled, pressure held for 5 minutes. No hematoma or bleeding noted.
[2018-11-30] MEDS: PIPER-TAZ 3.375 GM 50 ML IV SCH ×4 (01:50→21:21)
[2018-11-30] MEDS: VANCOMYCIN 1GM/NS 250 ML 250 ML IV SCH ×2 (02:55→16:00)
[2018-11-30 05:12] LABS: ANION GAP 7.7 mmol/L (8-16); BLOOD UREA NITROGEN 17 mg/dL (7-26); BUN/CREATININE RATIO 25 (6-25); CARBON DIOXIDE 21 mmol/L (22-29); CHLORIDE 115 mmol/L (98-107); CREATININE, SERUM 0.68 mg/dL (0.72-1.25); EST GLOMERULAR FILTRATION RATE > 60 ML/MIN (60-); GLUCOSE 68 mg/dL (74-118); SODIUM 141 mmol/L (136-145)
[2018-11-30 05:15] LABS: POTASSIUM 2.7 mmol/L (3.5-5.1)
[2018-11-30 05:16] LABS: CALCIUM 6.8 mg/dL (8.4-10.2)
[2018-11-30 06:38] LABS: BASOPHILS # (AUTO) 0.1 (0.0-0.1); BASOPHILS % 1.2 % (0.0-1.0); EOSINOPHILS # (AUTO) 0.4 (0.0-0.4); EOSINOPHILS % 3.7 % (0.0-6.0); HEMOGLOBIN 14.3 g/dL (14.0-18.0); LYMPHOCYTES % 19.8 % (18.0-39.1); MONOCYTES % 10.1 % (4.4-11.3); NEUTROPHILS # (AUTO) 6.7 (2.1-6.9); NEUTROPHILS % 64.3 % (38.7-80.0); PLATELET COUNT 299 x10e3/uL (140-360); RED BLOOD COUNT 4.47 x10e6/uL (4.3-5.7); RED CELL DISTRIBUTION WIDTH 12.8 % (11.7-14.4)
[2018-11-30] MEDS: INSULIN LISPRO 100 UNIT/1 ML 3ML VIAL SQ SCH ×4 (07:30→20:13)
[2018-11-30 07:35] LABS: ANION GAP 13.5 mmol/L (8-16); BLOOD UREA NITROGEN 21 mg/dL (7-26); BUN/CREATININE RATIO 20 (6-25); CALCIUM 9.5 mg/dL (8.4-10.2); CARBON DIOXIDE 23 mmol/L (22-29); CHLORIDE 104 mmol/L (98-107); CREATININE, SERUM 1.07 mg/dL (0.72-1.25); EST GLOMERULAR FILTRATION RATE > 60 ML/MIN (60-); GLUCOSE 93 mg/dL (74-118); SODIUM 137 mmol/L (136-145)
[2018-11-30 07:43] LABS: POTASSIUM 3.5 mmol/L (3.5-5.1)
[2018-11-30] MEDS: TRESIBA 25 UNIT SQ SCH (08:08)
[2018-11-30] MEDS: NIFEDIPINE CR 30 MG TAB PO SCH (08:08)
[2018-11-30] MEDS: LOSARTAN POTASSIUM 25 MG TAB PO SCH (08:08)
--- NOTE | 2018-11-30 11:12 | Progress Note ---
DATE: 11/30/2018 Cardiology Progress Note SUBJECTIVE: The patient denies chest pain or shortness of breath. He underwent peripheral angiogram yesterday with finding of occlusion of the distal right anterior tibial artery which was unable to be revascularized. He was transferred to the ICU overnight for monitoring. OBJECTIVE: VITAL SIGNS: Temperature 98.7 degrees, pulse 96, respiratory rate 19, blood pressure 141/97, and oxygen saturation 98% on room air. GENERAL: Awake, alert, in no acute distress. LUNGS: Clear to auscultation bilaterally. No wheezes or crackles. CARDIOVASCULAR: Normal rate, regular rhythm. No murmur. Normal S1, S2. ABDOMEN: Soft and nontender. EXTREMITIES: No edema. Bilateral groins without hematoma or bruise. MEDICATIONS: Losartan 100 mg p.o. daily, nifedipine 30 mg p.o. daily, fish oil 2000 mg p.o. daily. LABORATORY DATA: WBC 10.32, hemoglobin 14.3, hematocrit 42, platelets 299. Sodium 137, potassium 3.5, chloride 104, CO2 of 23, BUN 21, and creatinine 1.07. Telemetry; normal sinus rhythm. IMPRESSION: 1. Infected diabetic foot ulcer. 2. Diabetes mellitus. 3. Hypertension. 4. Hyperlipidemia. 5. Peripheral arterial disease. RECOMMENDATIONS: A peripheral angiogram was performed with finding of occlusion of the distal right anterior tibial artery. This could not be successfully revascularized, likely due to prior trauma of the right lower extremity. Continue antibiotics and wound care. Continue current cardiac medications. Blood pressure remains elevated. If this persists, we will further increase nifedipine. Continue current cardiac medications otherwise. Thank you for this consult. We will continue to follow. Jaycee Odonnell MD ABS/MODL /[id number]
[2018-11-30] MEDS ORDERED: SODIUM CHLORIDE 0.9% 250ML 250 ML ONE (15:24)
--- NOTE | 2018-11-30 15:33 | NUR ---
CONSULT FOR CALLED AT THIS TIME.
[2018-11-30] MEDS ORDERED: DIPHENOXYLATE/ATROPINE TAB PO PRN (16:15)
[2018-11-30] MEDS ORDERED: LOPERAMIDE HCL 2 MG CAP PO PRN (16:15)
[2018-11-30] MEDS: OMEGA 3 POLYUNSAT FATTY ACIDS 1000 MG SOFTGEL PO SCH (16:31)
--- NOTE | 2018-11-30 17:22 | NUR ---
PT TRANSFERRED TO ROOM 206
--- NOTE | 2018-11-30 19:00 | NUR ---
Rounding done & report received. Patient laying in bed awake & alert, respirations even & unlabored, no distress noted. Patient has right arm upper picc linex2. Wound dressing to right foot noted, C/D/I. Patient denies any issues or needs at this time. Call light within reach & side rails x2 raised.
[2018-11-30] MEDS: TRESIBA 20 UNIT SQ SCH (21:00)
[2018-11-30] MEDS: MORPHINE SULFATE INJ 4 MG/ML INJ 1ML IV PRN (21:21)
[2018-11-30] MEDS: PREGABALIN 50 MG CAP PO SCH (21:21)
[2018-12-01] VITALS (7 sets, daily range): BP systolic 129–147; BP diastolic 61–101
[2018-12-01] MEDS: PIPER-TAZ 3.375 GM 50 ML IV SCH ×3 (02:22→14:21)
[2018-12-01] MEDS: VANCOMYCIN 1GM/NS 250 ML 250 ML IV SCH ×2 (02:55→15:30)
--- NOTE | 2018-12-01 07:00 | NUR ---
BEDSIDE SHIFT REPORT RECEIVED FROM TARI BAILEY. PT DENIES NEEDS AT THIS TIME.
[2018-12-01] MEDS: INSULIN LISPRO 100 UNIT/1 ML 3ML VIAL SQ SCH ×3 (07:30→16:30)
[2018-12-01] MEDS: LOSARTAN POTASSIUM 25 MG TAB PO SCH (08:46)
[2018-12-01] MEDS: TRESIBA 25 UNIT SQ SCH (08:46)
[2018-12-01] MEDS: NIFEDIPINE CR 30 MG TAB PO SCH (08:46)
[2018-12-01] MEDS: HYDROCODONE/APAP 5MG-325MG TAB PO PRN (08:52)
--- NOTE | 2018-12-01 10:37 | NUR ---
EDUCATED ABOUT IMM, SIGNED, FILED IN CHART, WITH COPY LEFT WITH FAMILY AT BEDSIDE.
--- NOTE | 2018-12-01 12:49 | NUR ---
CM MET W DR. GARZA. ORDER GIVEN FOR HOME VANC 1GM IV Q12HR X 8WEEKS, CBC, CHEM PANEL, VANC TR WEEKLY AND CALL/FAX TO DR. GARZA'S OFFICE. MET W THE PT AT THE BEDSIDE TO DISCUSS CHOICE. PT CHOSE [facility]. CHOICE LETTER WA SIGNED AND PLACED IN THE PT'S CHART. INQUIRED ABOUT OUT OF POCKET COSTS. INFORMED PT [facility] WILL RUN HIS INSURANCE AND LET HIM KNOW IF THERE WILL BE ANY OUT OF POCKET COST. VERBALIZED UNDERSTANDING. REFERRAL WAS FAXED TO [facility] @ OFF: [phone] / FAX: [phone].
--- NOTE | 2018-12-01 14:28 | Progress Note ---
DATE: 12/01/2018 Cardiology Progress Note SUBJECTIVE: The patient denies chest pain or shortness of breath. OBJECTIVE: VITAL SIGNS: Temperature 98.8 degrees, pulse is 79, respiratory rate 20, blood pressure 129/61, oxygen saturation 95% on room air. GENERAL: Awake and alert, in no acute distress. LUNGS: Clear to auscultation bilaterally. No wheeze or crackles. CARDIOVASCULAR: Normal rate, regular rhythm. No murmur. Normal S1, S2. ABDOMEN: Soft, nontender. EXTREMITIES: No edema. CARDIAC MEDICATIONS: Losartan 100 mg p.o. daily, nifedipine 30 mg p.o. daily, fish oil 2000 mg p.o. daily. LABORATORY DATA: None today. TELEMETRY: None. IMPRESSION: 1. Infected diabetic foot ulcer. 2. Diabetes mellitus. 3. Hypertension. 4. Hyperlipidemia. 5. Peripheral arterial disease. RECOMMENDATIONS: Peripheral angiogram was performed with finding of occlusion of the distal right MONIKA. This could not be successfully revascularized likely due to prior trauma of the right lower extremity. Continue antibiotics and wound care. Blood pressure is for the most part reasonable for age. Continue current cardiac medications otherwise. Thank you for this consult. We will continue to follow. Jaycee Odonnell MD ABS/MODL /[id number]
--- NOTE | 2018-12-01 16:44 | NUR ---
HOME HEALTH DISCHARGE NOTE PATIENT ADDRESS WHERE SERVICE WILL BE RECEIVED: Priscilla BUTLER PATIENT CONTACT NUMBER: [phone] NAME OF HOME HEALTH COMPANY: [facility] TELEPHONE/FAX NUMBER OF COMPANY: OFF: [phone] / FAX: [phone] ADDRESS OF COMPANY: [id number], [place] [address] SERVICES TO RECEIVE: IV VANCOMYCIN 1 GM Q 12HR X 8WEEKS, CBC, CHEM AND VANC TROUGH WEEKLY BY NURSING ANTICIPATED DATE SERVICES WILL BEGIN: 12/02/2018 Please call the company above if you have not received a call to schedule a home visit within 24 hours of discharge. Addendum: 12/01/18 at 1651 by Mirtha Pace CM [facility] WILL GIVE BEDSIDE NURSE NAME OF HOME HEALTH AGENCY TO PROVIDE NURSING.
--- NOTE | 2018-12-01 17:30 | NUR ---
[facility] RN WITH [facility] AT PT'S BEDSIDE WITH PICC EDUCATION [facility].
[2018-12-01] MEDS: OMEGA 3 POLYUNSAT FATTY ACIDS 1000 MG SOFTGEL PO SCH (18:01)
--- NOTE | 2018-12-01 18:38 | NUR ---
OK FROM STANDPOINT OF DR. BALBUENA TO DISCHARGE HOME.
--- NOTE | 2018-12-01 19:27 | NUR ---
Patient discharge with all belongings. Family here to pickup patient.
--- NOTE | 2018-12-01 20:49 | History and Physical ---
REASON FOR CONSULTATION: Osteomyelitis of the right foot. HISTORY OF PRESENT ILLNESS: This patient is a very pleasant 63-year-old white male with history of diabetes mellitus, history of atherosclerotic disease, history of neuropathy, who has been having right foot ulcer for more than a month. He has been seen by Dr. Mulligan. He took several courses of oral antibiotics without any improvement. He came here for further debridement and IV antibiotics. The patient was seen by Dr. Mulligan. The patient has no fever, no chills, no nausea, no vomiting, and no diarrhea. The patient is currently lying in the bed comfortably. PAST MEDICAL HISTORY: Diabetes mellitus, diabetic foot ulcer, obesity, hypertension, dyslipidemia, neuropathy, peripheral vascular disease, and amputation of the right fourth toe. PAST SURGICAL HISTORY: As above. ALLERGIES: NKA. SOCIAL HISTORY: There is no smoking, drug abuse, or alcohol abuse. FAMILY HISTORY: Diabetes mellitus. REVIEW OF SYSTEMS: HEENT: Negative. PULMONARY: Negative. CARDIAC: Negative. : Negative. GI: Negative. SKIN: There is no other rash. JOINTS: Negative. HOME MEDICATIONS: 1. Hydrochlorothiazide. 2. Twain. 3. Losartan. 4. . 5. Lyrica. LABORATORY DATA: His cultures from the wound show Pseudomonas and Enterococcus faecalis. His white count is 10.32, hemoglobin 14.3, and hematocrit 42. His sodium is 137 and potassium 3.7. Creatinine 1.05. TSH 1.5. Sedimentation rate of 61. The patient had an x-ray of the foot showed compatible with osteomyelitis involving the lateral head of the fifth metatarsal. The patient has been seen by Cardiology and had been seen by Podiatry, Dr. Mulligan. He had a peripheral angiogram, which showed occlusion of the distal right anterior tibial artery. PHYSICAL EXAMINATION: GENERAL: He is currently alert, oriented, does not seem to be in acute distress. VITAL SIGNS: Stable, currently afebrile. HEENT: He is not icteric. NECK: Supple. CHEST: Clear. HEART: S1 and S2. No S3, S4, or murmur. ABDOMEN: Soft. Bowel sounds present. No tenderness. No hepatosplenomegaly. EXTREMITIES: No edema. SKIN: No rash. On the foot, there is no erythema or edema. He has an ulcer, which is noted. IMPRESSION AND PLAN: Osteomyelitis of the right foot. He will need 8 weeks of antibiotic. We will do vancomycin as well as Cipro. Obtain weekly CBC with a chemistry panel with the vancomycin trough. The patient is at risk for amputation. We will follow. Discussed with the patient. Discussed with Case Management. Discussed with the nursing team. MD TRINO Peterson/CARLEE /[id number]
== END 2018-12-01 19:26 | disposition home or self-care (01) | DRG 872 ==
LOC: ER 13:19 → ERHOLD 14:48 → MED/SURG3 15:46 → ICU 11-29 18:33 → MED/SURG2 11-30 17:21
PROVIDERS: ADMIT Internal Medicine; ATTEND Internal Medicine
PROC: B41D1ZZ Fluoroscopy of Aorta and Bilateral Lower Extremity Arteries using Low Osmolar Contrast (ICD-10-PCS; principal; 2018-11-26)
DX: A41.9 Sepsis, unspecified organism (principal); L97.518 Non-pressure chronic ulcer of other part of right foot with other specified severity; E11.51 Type 2 diabetes mellitus with diabetic peripheral angiopathy without gangrene; E11.621 Type 2 diabetes mellitus with foot ulcer; Z79.4 Long term (current) use of insulin; I87.2 Venous insufficiency (chronic) (peripheral); Z89.421 Acquired absence of other right toe(s); B96.5 Pseudomonas (aeruginosa) (mallei) (pseudomallei) as the cause of diseases classified elsewhere; B95.2 Enterococcus as the cause of diseases classified elsewhere; B96.89 Other specified bacterial agents as the cause of diseases classified elsewhere; I70.235 Atherosclerosis of native arteries of right leg with ulceration of other part of foot; I25.2 Old myocardial infarction
CPT/HCPCS: 36247; 36415; 36569; 71045; 75625; 75710; 80048; 80053; 80202; 81001; 82948; 83036; 84443; 85025; 85610; 85730; 87040; 87071; 87186; 87205; 93005; 93925; 96361; 96372; 99284; C1766; C1769; C1887; J1644; J2001; J2250; J2270; J2543; J3370; J7030; J7050; Q9967

== ENCOUNTER 2019-01-11 08:33 | Emergency (ER) | payer MEDICARE ==
[~2019-01-11] VITALS: Ht 177.8 cm; Wt 96.6 kg
[~2019-01-11 08:33] MED LIST changes: +FISH OIL 1,0001 EAC3 PO; +LOSARTAN POTASS25 MG PO
[2019-01-11] MEDS ORDERED: CLINDAMYCIN HC300 MG PO (09:43)
== END 2019-01-11 10:39 | disposition home or self-care (01) ==
LOC: ER 08:33
DX: Z48.00 Encounter for change or removal of nonsurgical wound dressing (principal); I10 Essential (primary) hypertension; E11.9 Type 2 diabetes mellitus without complications; Z86.73 Personal history of transient ischemic attack (TIA), and cerebral infarction without residual deficits
CPT/HCPCS: 99283

== ENCOUNTER 2020-06-04 05:47 | Emergency (ER) | payer MEDICARE ==
[~2020-06-04] VITALS: Ht 177.8 cm; Wt 96.6 kg
[~2020-06-04 05:47] MED LIST changes: +CLINDAMYCIN HC300 MG PO
[2020-06-04] MEDS ORDERED: CLINDAMYCIN PHOS 600 MG/ 4 ML VIAL IM ONE (06:00)
== END 2020-06-04 06:42 | disposition home or self-care (01) ==
LOC: ER 05:58
DX: N49.2 Inflammatory disorders of scrotum (principal); I10 Essential (primary) hypertension; E11.40 Type 2 diabetes mellitus with diabetic neuropathy, unspecified; Z86.73 Personal history of transient ischemic attack (TIA), and cerebral infarction without residual deficits
CPT/HCPCS: 99282

== ENCOUNTER 2020-09-28 20:24 | Inpatient (IN) | payer MEDICARE ==
[~2020-09-28] VITALS: Ht 177.8 cm; Wt 100.9 kg
[2020-09-28] MEDS ORDERED: VANCOMYCIN 1GM/NS 250 ML 250 ML IV SCH (21:15)
[2020-09-28 21:29] LABS: BASOPHILS # (AUTO) 0.2 (0.0-0.1); BASOPHILS % 1.7 % (0.0-1.0); EOSINOPHILS # (AUTO) 0.5 (0.0-0.4); EOSINOPHILS % 5.4 % (0.0-6.0); HEMATOCRIT 48.4 % (38.2-49.6); HEMOGLOBIN 16.6 g/dL (14.0-18.0); LYMPHOCYTES # (AUTO) 1.7 (1.0-3.2); LYMPHOCYTES % 19.3 % (18.0-39.1); MEAN CORPUSCULAR HEMOGLOBIN 32.1 pg (28-32); MEAN CORPUSCULAR HGB CONC 34.3 g/dL (31-35); MEAN CORPUSCULAR VOLUME 93.6 fL (81-99); MONOCYTES # (AUTO) 0.8 (0.2-0.8); MONOCYTES % 9.1 % (4.4-11.3); NEUTROPHILS # (AUTO) 5.5 (2.1-6.9); NEUTROPHILS % 63.1 % (38.7-80.0); PLATELET COUNT 290 x10e3/uL (140-360); RED BLOOD COUNT 5.17 x10e6/uL (4.3-5.7); RED CELL DISTRIBUTION WIDTH 12.5 % (11.7-14.4)
[2020-09-28] MEDS: CEFEPIME HCL 1 GM VIAL IV SCH ×2 (21:30→22:00)
[2020-09-28 21:40] LABS: INR 0.77; PROTHROMBIN TIME 11.3 seconds (11.9-14.5)
[2020-09-28 21:41] LABS: PARTIAL THROMBOPLASTIN TIME 25.5 seconds (23.8-35.5)
[2020-09-28 21:53] LABS: ALBUMIN 3.8 g/dL (3.5-5.0); ALBUMIN/GLOBULIN RATIO 0.8 (0.8-2.0); ANION GAP 17.4 mmol/L (8-16); CALCIUM 9.7 mg/dL (8.4-10.2); CREATININE, SERUM 1.75 mg/dL (0.72-1.25); POTASSIUM 4.4 mmol/L (3.5-5.1)
[2020-09-28] MEDS ORDERED: SODIUM CHLORIDE 0.9% 50ML 50 ML ONE (22:00)
[2020-09-28] MEDS ORDERED: ONDANSETRON HCL INJ 2MG/ML 2ML 2 MG/ML VIAL IV PRN (23:00)
[2020-09-28] MEDS ORDERED: DEXTROSE 50% SYRINGE 50 ML IV PRN (23:00)
[2020-09-29] VITALS (8 sets, daily range): BP systolic 125–161; BP diastolic 77–95
[2020-09-29] MEDS ORDERED: MULTI-VITAMIN1 EACH PO (02:40)
[2020-09-29] MEDS ORDERED: HYDROCODON-ACE1 EAC9 PO (02:40)
[2020-09-29] MEDS ORDERED: APPLE CIDER VI300 MG PO (02:40)
[2020-09-29] MEDS ORDERED: JANUVIA25 MG PO (02:42)
[2020-09-29] MEDS ORDERED: CEFEPIME HCL 1GM 1 GM in SODIUM CHLORIDE 0.9% 50ML 50 ML IV SCH (05:00)
[2020-09-29] MEDS ORDERED: SODIUM CHLORIDE 0.9% 250ML 250 ML ONE (05:15)
[2020-09-29] MEDS ORDERED: SODIUM CHLORIDE 0.9% 50ML 50 ML ONE (05:19)
[2020-09-29] MEDS: CEFEPIME HCL 1 GM VIAL IV SCH (05:24)
[2020-09-29] MEDS ORDERED: INSULIN REGULAR, HUMAN 100 UNIT/1 ML 3ML VIAL SQ SCH (07:30)
[2020-09-29] MEDS ORDERED: DEXTROSE 50% SYRINGE 50 ML IV PRN (08:30)
[2020-09-29] MEDS ORDERED: TRESIBA 30 UNIT SQ SCH ×2 (09:00→21:00)
[2020-09-29] MEDS ORDERED: LOSARTAN POTASSIUM 25 MG TAB PO SCH (09:00)
[2020-09-29] MEDS: CIDER VINEGAR PO SCH (09:00)
[2020-09-29] MEDS: ASPIRIN 325 MG TAB EC PO SCH (09:14)
[2020-09-29] MEDS: SITAGLIPTIN 100 MG TAB PO SCH (09:14)
[2020-09-29] MEDS: MULTIVITAMINS/MINERALS TAB PO SCH (09:14)
[2020-09-29] MEDS: PREGABALIN 50 MG CAP PO SCH ×2 (09:14→16:42)
[2020-09-29] MEDS: HYDROCODONE/APAP 10MG-325MG TAB PO PRN ×3 (09:15→23:09)
[2020-09-29] MEDS: PIPERACILLIN/TAZOBAC 3.375 GM in SODIUM CHLORIDE 0.9% 50ML 50 ML IV SCH ×3 (09:16→22:00)
[2020-09-29 09:40] LABS: BASOPHILS # (AUTO) 0.1 (0.0-0.1); BASOPHILS % 1.4 % (0.0-1.0); EOSINOPHILS # (AUTO) 0.5 (0.0-0.4); EOSINOPHILS % 5.2 % (0.0-6.0); HEMATOCRIT 45.6 % (38.2-49.6); HEMOGLOBIN 15.5 g/dL (14.0-18.0); LYMPHOCYTES # (AUTO) 2.6 (1.0-3.2); LYMPHOCYTES % 29.9 % (18.0-39.1); MEAN CORPUSCULAR HEMOGLOBIN 32.2 pg (28-32); MEAN CORPUSCULAR VOLUME 94.6 fL (81-99); MONOCYTES # (AUTO) 0.9 (0.2-0.8); MONOCYTES % 10.7 % (4.4-11.3); NEUTROPHILS # (AUTO) 4.5 (2.1-6.9); NEUTROPHILS % 51.8 % (38.7-80.0); PLATELET COUNT 252 x10e3/uL (140-360); RED BLOOD COUNT 4.82 x10e6/uL (4.3-5.7); RED CELL DISTRIBUTION WIDTH 12.4 % (11.7-14.4)
[2020-09-29 09:41] LABS: ALBUMIN 3.4 g/dL (3.5-5.0); ALBUMIN/GLOBULIN RATIO 0.9 (0.8-2.0); ANION GAP 14.1 mmol/L (8-16); CALCIUM 9.2 mg/dL (8.4-10.2); CREATININE, SERUM 1.33 mg/dL (0.72-1.25); POTASSIUM 4.1 mmol/L (3.5-5.1)
[2020-09-29] MEDS: INSULIN LISPRO 100 UNIT/1 ML 3ML VIAL SQ SCH ×5 (11:23→20:11)
[2020-09-29] MEDS: MUPIROCIN 2% OINT 22 GM TUBE TOP SCH ×2 (12:19→20:13)
[2020-09-29] MEDS ORDERED: SODIUM CHLORIDE 0.9% 1000ML 1,000 ML IV SCH (12:30)
[2020-09-29] MEDS: ENOXAPARIN SOD INJ 40 MG/0.4 ML SYR SC SCH (16:42)
[2020-09-29] MEDS ORDERED: MUPIROCIN 2% OINT 22 GM TUBE TOP SCH (17:00)
[2020-09-29] MEDS: INSULIN GLARGINE 100 UNITS/ML VIAL SQ SCH (20:12)
[2020-09-30] VITALS (8 sets, daily range): BP systolic 127–151; BP diastolic 83–97
[2020-09-30] MEDS: PIPERACILLIN/TAZOBAC 3.375 GM in SODIUM CHLORIDE 0.9% 50ML 50 ML IV SCH ×4 (04:00→21:30)
[2020-09-30] MEDS: HYDROCODONE/APAP 10MG-325MG TAB PO PRN ×2 (05:20→18:09)
[2020-09-30 07:01] LABS: BASOPHILS # (AUTO) 0.1 (0.0-0.1); BASOPHILS % 1.5 % (0.0-1.0); EOSINOPHILS # (AUTO) 0.5 (0.0-0.4); EOSINOPHILS % 5.4 % (0.0-6.0); HEMATOCRIT 46.9 % (38.2-49.6); HEMOGLOBIN 15.8 g/dL (14.0-18.0); LYMPHOCYTES # (AUTO) 1.4 (1.0-3.2); LYMPHOCYTES % 15.9 % (18.0-39.1); MEAN CORPUSCULAR HEMOGLOBIN 31.8 pg (28-32); MEAN CORPUSCULAR HGB CONC 33.7 g/dL (31-35); MEAN CORPUSCULAR VOLUME 94.4 fL (81-99); MONOCYTES # (AUTO) 0.9 (0.2-0.8); MONOCYTES % 10.6 % (4.4-11.3); NEUTROPHILS # (AUTO) 5.7 (2.1-6.9); NEUTROPHILS % 65.8 % (38.7-80.0); PLATELET COUNT 248 x10e3/uL (140-360); RED BLOOD COUNT 4.97 x10e6/uL (4.3-5.7); RED CELL DISTRIBUTION WIDTH 12.4 % (11.7-14.4)
[2020-09-30 07:22] LABS: ANION GAP 11.4 mmol/L (8-16); CALCIUM 9.1 mg/dL (8.4-10.2); CREATININE, SERUM 1.36 mg/dL (0.72-1.25); POTASSIUM 4.4 mmol/L (3.5-5.1)
[2020-09-30] MEDS: INSULIN LISPRO 100 UNIT/1 ML 3ML VIAL SQ SCH ×7 (07:30→21:00)
[2020-09-30] MEDS: CIDER VINEGAR PO SCH (08:03)
[2020-09-30] MEDS: MUPIROCIN 2% OINT 22 GM TUBE TOP SCH ×2 (09:00→21:00)
[2020-09-30] MEDS: SITAGLIPTIN 100 MG TAB PO SCH (09:16)
[2020-09-30] MEDS: PREGABALIN 50 MG CAP PO SCH ×2 (09:16→16:07)
[2020-09-30] MEDS: MULTIVITAMINS/MINERALS TAB PO SCH (09:16)
[2020-09-30] MEDS: ASPIRIN 325 MG TAB EC PO SCH (09:16)
[2020-09-30] MEDS ORDERED: SODIUM CHLORIDE 0.9% 250ML 250 ML ONE (14:14)
[2020-09-30] MEDS ORDERED: FENTANYL CITRATE/PF 100MCG/2 ML INJ ONE (14:19)
[2020-09-30] MEDS ORDERED: MIDAZOLAM HCL 2 MG/2 ML VIAL ONE (14:19)
[2020-09-30] MEDS: INSULIN GLARGINE 100 UNITS/ML VIAL SQ SCH (21:00)
[2020-09-30] MEDS: VANCOMYCIN 1GM/NS 250 ML 250 ML IV SCH (23:00)
[2020-10-01] VITALS (8 sets, daily range): BP systolic 123–141; BP diastolic 55–93
[2020-10-01] MEDS: HYDROCODONE/APAP 10MG-325MG TAB PO PRN ×3 (01:02→23:45)
[2020-10-01] MEDS: PIPERACILLIN/TAZOBAC 3.375 GM in SODIUM CHLORIDE 0.9% 50ML 50 ML IV SCH ×4 (04:00→22:00)
[2020-10-01] MEDS: INSULIN LISPRO 100 UNIT/1 ML 3ML VIAL SQ SCH ×7 (07:30→21:00)
[2020-10-01] MEDS: CIDER VINEGAR PO SCH (09:00)
[2020-10-01] MEDS: ASPIRIN 325 MG TAB EC PO SCH (09:25)
[2020-10-01] MEDS: MULTIVITAMINS/MINERALS TAB PO SCH (09:25)
[2020-10-01] MEDS: PREGABALIN 50 MG CAP PO SCH ×2 (09:25→16:59)
[2020-10-01] MEDS: MUPIROCIN 2% OINT 22 GM TUBE TOP SCH ×2 (09:25→20:12)
[2020-10-01] MEDS: SITAGLIPTIN 100 MG TAB PO SCH (09:25)
[2020-10-01] MEDS: ENOXAPARIN SOD INJ 40 MG/0.4 ML SYR SC SCH (17:00)
[2020-10-01] MEDS: INSULIN GLARGINE 100 UNITS/ML VIAL SQ SCH (21:00)
[2020-10-01] MEDS: VANCOMYCIN 1GM/NS 250 ML 250 ML IV SCH (23:00)
[2020-10-02] VITALS (9 sets, daily range): BP systolic 124–161; BP diastolic 54–104
[2020-10-02] MEDS: PIPERACILLIN/TAZOBAC 3.375 GM in SODIUM CHLORIDE 0.9% 50ML 50 ML IV SCH ×4 (04:00→21:03)
[2020-10-02 07:10] LABS: ANION GAP 11.2 mmol/L (8-16); CALCIUM 8.8 mg/dL (8.4-10.2); CREATININE, SERUM 1.27 mg/dL (0.72-1.25); POTASSIUM 4.2 mmol/L (3.5-5.1)
[2020-10-02] MEDS: INSULIN LISPRO 100 UNIT/1 ML 3ML VIAL SQ SCH ×7 (07:30→20:58)
[2020-10-02] MEDS: MULTIVITAMINS/MINERALS TAB PO SCH (08:36)
[2020-10-02] MEDS: MUPIROCIN 2% OINT 22 GM TUBE TOP SCH ×2 (08:36→21:00)
[2020-10-02] MEDS: SITAGLIPTIN 100 MG TAB PO SCH (08:36)
[2020-10-02] MEDS: ASPIRIN 325 MG TAB EC PO SCH (08:36)
[2020-10-02] MEDS: PREGABALIN 50 MG CAP PO SCH ×2 (08:36→16:41)
[2020-10-02] MEDS: CIDER VINEGAR PO SCH (09:00)
[2020-10-02] MEDS: HYDROCODONE/APAP 10MG-325MG TAB PO PRN ×2 (09:31→16:42)
[2020-10-02] MEDS ORDERED: NEBIVOLOL 10 MG TAB PO ONE (10:30)
[2020-10-02] MEDS: ENOXAPARIN SOD INJ 40 MG/0.4 ML SYR SC SCH (16:41)
[2020-10-02] MEDS: INSULIN GLARGINE 100 UNITS/ML VIAL SQ SCH (21:00)
[2020-10-02] MEDS: VANCOMYCIN 1GM/NS 250 ML 250 ML IV SCH (23:00)
[2020-10-03 00:15] VITALS: BP 152/98
[2020-10-03] MEDS: PIPERACILLIN/TAZOBAC 3.375 GM in SODIUM CHLORIDE 0.9% 50ML 50 ML IV SCH ×3 (03:10→17:06)
[2020-10-03 04:29] VITALS: BP 143/92
[2020-10-03] MEDS: INSULIN LISPRO 100 UNIT/1 ML 3ML VIAL SQ SCH ×6 (07:30→16:30)
[2020-10-03 08:19] VITALS: BP 177/97
[2020-10-03] MEDS ORDERED: NEBIVOLOL 10 MG TAB PO SCH (09:00)
[2020-10-03] MEDS: CIDER VINEGAR PO SCH (09:00)
[2020-10-03 09:18] VITALS: BP 177/97
[2020-10-03] MEDS: ASPIRIN 325 MG TAB EC PO SCH (09:36)
[2020-10-03] MEDS: SITAGLIPTIN 100 MG TAB PO SCH (09:37)
[2020-10-03] MEDS: PREGABALIN 50 MG CAP PO SCH ×2 (09:37→17:08)
[2020-10-03] MEDS: MULTIVITAMINS/MINERALS TAB PO SCH (09:37)
[2020-10-03] MEDS: MUPIROCIN 2% OINT 22 GM TUBE TOP SCH (09:49)
[2020-10-03] MEDS: HYDROCODONE/APAP 10MG-325MG TAB PO PRN ×2 (10:00)
[2020-10-03 11:45] VITALS: BP 147/89
[2020-10-03] MEDS ORDERED: VANCOMYCIN HCL 1.5 GM in SODIUM CHLORIDE 0.9% 250ML 300 ML IV SCH (13:00)
[2020-10-03 16:11] VITALS: BP 125/82
[2020-10-03] MEDS: ENOXAPARIN SOD INJ 40 MG/0.4 ML SYR SC SCH (17:08)
== END 2020-10-03 19:54 | disposition home or self-care (01) | DRG 982 ==
LOC: ER 21:03 → ERHOLD 23:03 → MED/SURG3 09-29 01:43
PROVIDERS: ADMIT Internal Medicine; ATTEND Internal Medicine
PROC: 0KBV0ZZ Excision of Right Foot Muscle, Open Approach (ICD-10-PCS; principal; 2020-09-30)
PROC: 0JH63XZ Insertion of Tunneled Vascular Access Device into Chest Subcutaneous Tissue and Fascia, Percutaneous Approach (ICD-10-PCS; 2020-09-30)
PROC: 02HV33Z Insertion of Infusion Device into Superior Vena Cava, Percutaneous Approach (ICD-10-PCS; 2020-09-30)
PROC: B548ZZA Ultrasonography of Superior Vena Cava, Guidance (ICD-10-PCS; 2020-09-30)
DX: E11.52 Type 2 diabetes mellitus with diabetic peripheral angiopathy with gangrene (principal); M86.171 Other acute osteomyelitis, right ankle and foot; I96 Gangrene, not elsewhere classified; L03.115 Cellulitis of right lower limb; N17.9 Acute kidney failure, unspecified; E11.69 Type 2 diabetes mellitus with other specified complication; E11.21 Type 2 diabetes mellitus with diabetic nephropathy; E11.22 Type 2 diabetes mellitus with diabetic chronic kidney disease; N18.30 Chronic kidney disease, stage 3 unspecified; E11.65 Type 2 diabetes mellitus with hyperglycemia; Z79.82 Long term (current) use of aspirin; Z88.2 Allergy status to sulfonamides; I12.9 Hypertensive chronic kidney disease with stage 1 through stage 4 chronic kidney disease, or unspecified chronic kidney disease; E11.42 Type 2 diabetes mellitus with diabetic polyneuropathy; E11.621 Type 2 diabetes mellitus with foot ulcer; L97.514 Non-pressure chronic ulcer of other part of right foot with necrosis of bone; Z20.822 Contact with and (suspected) exposure to COVID-19
CPT/HCPCS: 36415; 36558; 74470; 76937; 77001; 80048; 80053; 80202; 82948; 83036; 84443; 85025; 85610; 85730; 87040; 93925; 99251; 99284; J0692; J1650; J1815; J2250; J2543; J3010; J3370; J7030; J7050; U0002

== ENCOUNTER → 2020-11-21 | Outpatient (CLI) | payer MEDICARE ==
[~2020-11-21] MED LIST changes: +APPLE CIDER VI300 MG PO; +HYDROCODON-ACE1 EAC9 PO; +JANUVIA25 MG PO; +MULTI-VITAMIN1 EACH PO
== END ==
LOC: DX 09:34
PROVIDERS: ATTEND Internal Medicine
DX: M86.9 Osteomyelitis, unspecified (principal)
CPT/HCPCS: 36589

== ENCOUNTER 2024-02-03 08:14 | Inpatient (IN) | payer MEDICARE ==
[~2024-02-03] VITALS: Ht 177.8 cm; Wt 99.8 kg
[2024-02-03 08:26] VITALS: TEMP 98.2
[2024-02-03 08:55] LABS: BASOPHILS # (AUTO) 0.2 (0.0-0.1); BASOPHILS % 1.3 % (0.0-1.0); EOSINOPHILS # (AUTO) 0.6 (0.0-0.4); EOSINOPHILS % 5.5 % (0.0-6.0); HEMATOCRIT 49.4 % (38.2-49.6); HEMOGLOBIN 16.5 g/dL (14.0-18.0); LYMPHOCYTES % 26.1 % (18.0-39.1); MEAN CORPUSCULAR HEMOGLOBIN 32.2 pg (28-32); MEAN CORPUSCULAR HGB CONC 33.4 g/dL (31-35); MEAN CORPUSCULAR VOLUME 96.5 fL (81-99); MONOCYTES # (AUTO) 1.3 (0.2-0.8); MONOCYTES % 11.6 % (4.4-11.3); NEUTROPHILS # (AUTO) 6.2 (2.1-6.9); NEUTROPHILS % 54.2 % (38.7-80.0); PLATELET COUNT 238 x10e3/uL (140-360); RED BLOOD COUNT 5.12 x10e6/uL (4.3-5.7); RED CELL DISTRIBUTION WIDTH 13.7 % (11.7-14.4); WHITE BLOOD COUNT 11.36 x10e3/uL (4.8-10.8)
[2024-02-03 09:04] LABS: INR 0.89; PROTHROMBIN TIME 12.5 seconds (11.9-14.5)
[2024-02-03 09:05] LABS: PARTIAL THROMBOPLASTIN TIME 26.5 seconds (23.8-35.5)
[2024-02-03 09:20] LABS: ALANINE AMINOTRANSFERASE 47 IU/L (0-55); ALBUMIN 3.7 g/dL (3.5-5.0); ALBUMIN/GLOBULIN RATIO 0.9 (0.8-2.0); ALKALINE PHOSPHATASE 114 IU/L (40-150); ANION GAP 13.1 mmol/L (8-16); BLOOD UREA NITROGEN 25 mg/dL (7-26); BUN/CREATININE RATIO 18 (6-25); CALCIUM 10.4 mg/dL (8.4-10.2); CARBON DIOXIDE 28 mmol/L (22-29); CHLORIDE 103 mmol/L (98-107); CREATINE KINASE 58 IU/L (30-200); CREATININE, SERUM 1.39 mg/dL (0.72-1.25); EST GLOMERULAR FILTRATION RATE 56 ML/MIN (>=60); GLUCOSE 65 mg/dL (74-118); MAGNESIUM 2.1 MG/DL (1.3-2.1); POTASSIUM 4.1 mmol/L (3.5-5.1); SODIUM 140 mmol/L (136-145); TOTAL PROTEIN 7.6 g/dL (6.5-8.1)
[2024-02-03 09:29] LABS: ACETAMINOPHEN < 3.0 ug/mL (10-30); ETHANOL < 10.0 mg/dL (0.0-10.0); SALICYLATE < 5.0 mg/dL (0-30)
[2024-02-03 09:30] LABS: CLARITY,URINE CLEAR (CLEAR); COLOR,URINE YELLOW (YELLOW); GLUCOSE, URINE NEGATIVE (NEGATIVE); KETONES,URINE NEGATIVE (NEGATIVE); LEUKOCYTE ESTERASE ,URINE NEGATIVE (NEGATIVE); NITRITE,URINE NEGATIVE (NEGATIVE); PH,URINE 6 (5 - 7); PROTEIN,URINE DIPSTICK 1+ (NEGATIVE); URINE UROBILINOGEN 0.2 mg/dL (0.2 - 1)
[2024-02-03 09:31] LABS: BILIRUBIN,URINE NEGATIVE (NEGATIVE)
[2024-02-03 09:32] LABS: BACTERIA,URINE FEW /HPF; EPITHELIAL CELLS,URINE FEW /LPF; OPIATES SCREEN,URINE POSITIVE (NEGATIVE); RBC,URINE 0-5 /HPF (0-5); WBC,URINE (MAN) 0-5 /HPF (0-5)
[2024-02-03 09:33] LABS: AMPHETAMINES SCREEN,URINE NEGATIVE (NEGATIVE); BENZODIAZEPINES SCREEN,URINE NEGATIVE (NEGATIVE); CANNABINOIDS SCREEN,URINE NEGATIVE (NEGATIVE); METHADONE SCREEN, URINE NEGATIVE (NEGATIVE); PHENCYCLIDINE SCREEN,URINE NEGATIVE (NEGATIVE)
[2024-02-03 09:54] LABS: TROPONIN I < 0.05 ng/mL (0.0-0.40)
[2024-02-03] MEDS ORDERED: IOPAMIDOL 370 MG/ML 100 ML INFUS..BTL INJ ONE (10:06)
[2024-02-03] MEDS ORDERED: DEXTROSE 50% SYRINGE 50 ML IV PRN ×2 (11:30→12:45)
[2024-02-03] MEDS ORDERED: HYDRALAZINE HCL 20 MG/ML VIAL IV PRN (11:45)
[2024-02-03] MEDS: DEXTROSE 50% SYRINGE 50 ML IV ONE (11:51)
[2024-02-03 12:01] VITALS: PULSE 53; RESP 14
[2024-02-03] MEDS ORDERED: MELATONIN 3 MG TAB PO PRN (12:45)
[2024-02-03] MEDS: HYDRALAZINE HCL 25 MG TAB PO SCH (12:45)
[2024-02-03] MEDS ORDERED: ALBUTEROL/IPRATROPIUM 3 ML NEB NEB PRN (12:45)
[2024-02-03 15:32] VITALS: BP 181/85; PULSE 56; RESP 16; TEMP 98; O2SAT 97
[2024-02-03] MEDS: INSULIN REGULAR, HUMAN 100 UNIT/1 ML SQ SCH (15:37)
[2024-02-03] MEDS: DEXTROSE 5% 1,000 ML IV ONE (15:41)
[2024-02-03] MEDS: PREGABALIN 50 MG CAP PO SCH (15:57)
[2024-02-03] MEDS: ASPIRIN 81 MG CHEW TAB PO ONE (15:57)
[2024-02-03 16:13] LABS: CREATINE KINASE 68 IU/L (30-200)
[2024-02-03] MEDS ORDERED: ATENOLOL50 MG PO (16:19)
[2024-02-03 16:27] VITALS: BP 181/85; PULSE 56; RESP 16; TEMP 98; O2SAT 97
[2024-02-03] MEDS: SODIUM CHLORIDE 0.9% 1000ML 1,000 ML IV STA (16:52)
[2024-02-03] MEDS: HYDROCODONE/APAP 10MG-325MG TAB PO PRN (18:47)
[2024-02-03 19:15] VITALS: PULSE 75; RESP 18; O2SAT 94
[2024-02-03 20:00] VITALS: BP 168/93; PULSE 75; RESP 18; TEMP 98.1; O2SAT 100
[2024-02-03] MEDS: ATORVASTATIN 40 MG TAB PO SCH (22:18)
[2024-02-03] MEDS: ATENOLOL 50 MG TAB PO SCH (22:19)
[2024-02-04] VITALS: BP 120/58; PULSE 70; RESP 18; TEMP 97.7; O2SAT 98
[2024-02-04 04:00] VITALS: BP 132/77; PULSE 47; RESP 18; TEMP 97.6; O2SAT 99
[2024-02-04 04:26] LABS: TROPONIN I < 0.030 ng/mL (0-0.300)
[2024-02-04 07:06] LABS: BASOPHILS # (AUTO) 0.1 (0.0-0.1); BASOPHILS % 1.1 % (0.0-1.0); EOSINOPHILS # (AUTO) 0.4 (0.0-0.4); EOSINOPHILS % 4.1 % (0.0-6.0); HEMATOCRIT 45.4 % (38.2-49.6); HEMOGLOBIN 15.3 g/dL (14.0-18.0); LYMPHOCYTES # (AUTO) 1.8 (1.0-3.2); LYMPHOCYTES % 19.6 % (18.0-39.1); MEAN CORPUSCULAR HEMOGLOBIN 32.3 pg (28-32); MEAN CORPUSCULAR HGB CONC 33.7 g/dL (31-35); MONOCYTES # (AUTO) 1.1 (0.2-0.8); MONOCYTES % 11.9 % (4.4-11.3); NEUTROPHILS # (AUTO) 5.6 (2.1-6.9); NEUTROPHILS % 61.9 % (38.7-80.0); PLATELET COUNT 191 x10e3/uL (140-360); RED BLOOD COUNT 4.73 x10e6/uL (4.3-5.7); RED CELL DISTRIBUTION WIDTH 13.9 % (11.7-14.4); WHITE BLOOD COUNT 9.11 x10e3/uL (4.8-10.8)
[2024-02-04 07:17] LABS: ALBUMIN/GLOBULIN RATIO 0.9 (0.8-2.0); ANION GAP 14.3 mmol/L (8-16); BILIRUBIN,TOTAL 0.8 mg/dL (0.2-1.2); CALCIUM 9.3 mg/dL (8.4-10.2); CHOL/HDL RATIO 3.8 (3.9-4.7); CREATININE, SERUM 1.34 mg/dL (0.72-1.25); POTASSIUM 4.3 mmol/L (3.5-5.1); TOTAL PROTEIN 6.4 g/dL (6.5-8.1)
[2024-02-04 07:53] VITALS: PULSE 79; RESP 18; O2SAT 96
[2024-02-04 08:39] VITALS: BP 132/69; PULSE 49; RESP 18; TEMP 98.6; O2SAT 97
[2024-02-04 08:49] VITALS: BP 132/69; PULSE 49; RESP 18; TEMP 98.6; O2SAT 97
[2024-02-04] MEDS: ASPIRIN 81 MG ENTERIC COATED PO SCH (08:51)
[2024-02-04] MEDS ORDERED: ASPIRIN 325 MG TAB EC PO SCH (09:00)
[2024-02-04] MEDS ORDERED: NON-FORMULARY MEDICATION (Sitagliptin Phosphate* (Januvia*) 25 MG) PO SCH (09:00)
[2024-02-04] MEDS ORDERED: HYDRALAZINE HCL25 MG PO (09:44)
[2024-02-04 12:15] VITALS: BP 125/77; PULSE 52; RESP 20; TEMP 98.4; O2SAT 95
== END 2024-02-04 13:23 | disposition home or self-care (01) | DRG 305 ==
LOC: ER 08:21 → ERHOLD 11:24 → MED/SURG 13:10
PROVIDERS: ADMIT Internal Medicine; ATTEND Internal Medicine
DX: I16.1 Hypertensive emergency (principal); G45.9 Transient cerebral ischemic attack, unspecified; E11.649 Type 2 diabetes mellitus with hypoglycemia without coma; K21.9 Gastro-esophageal reflux disease without esophagitis; E78.5 Hyperlipidemia, unspecified; E11.40 Type 2 diabetes mellitus with diabetic neuropathy, unspecified; E11.51 Type 2 diabetes mellitus with diabetic peripheral angiopathy without gangrene; E11.22 Type 2 diabetes mellitus with diabetic chronic kidney disease; I12.9 Hypertensive chronic kidney disease with stage 1 through stage 4 chronic kidney disease, or unspecified chronic kidney disease; N18.30 Chronic kidney disease, stage 3 unspecified; I49.8 Other specified cardiac arrhythmias; I49.5 Sick sinus syndrome; R00.1 Bradycardia, unspecified; T42.6X5A Adverse effect of other antiepileptic and sedative-hypnotic drugs, initial encounter; Z11.52 Encounter for screening for COVID-19; Z79.4 Long term (current) use of insulin; Z86.73 Personal history of transient ischemic attack (TIA), and cerebral infarction without residual deficits; Z89.421 Acquired absence of other right toe(s); Z72.0 Tobacco use; Z88.2 Allergy status to sulfonamides; Z91.148 Patient's other noncompliance with medication regimen for other reason; Z79.82 Long term (current) use of aspirin; Z79.891 Long term (current) use of opiate analgesic; Z79.84 Long term (current) use of oral hypoglycemic drugs
CPT/HCPCS: 36415; 70450; 70496; 70498; 70551; 71045; 80053; 80061; 80307; 80320; 80329; 81001; 82550; 82948; 83036; 83735; 84484; 85025; 85610; 85730; 93005; 94799; 99284; J7799; Q9967; U0002

== ENCOUNTER 2024-05-06 12:56 | Emergency (ER) | payer MEDICARE ==
[~2024-05-06] VITALS: Ht 177.8 cm; Wt 99.8 kg
[~2024-05-06 12:56] MED LIST changes: +HYDRALAZINE HCL25 MG PO
[2024-05-06 13:06] VITALS: PULSE 110; RESP 17; TEMP 98.4; O2SAT 98
== END 2024-05-06 13:59 | disposition home or self-care (01) ==
LOC: ER 13:13
DX: T25.031A Burn of unspecified degree of right toe(s) (nail), initial encounter (principal); W86.1XXA Exposure to industrial wiring, appliances and electrical machinery, initial encounter; Y92.89 Other specified places as the place of occurrence of the external cause; I10 Essential (primary) hypertension; E11.40 Type 2 diabetes mellitus with diabetic neuropathy, unspecified; E78.5 Hyperlipidemia, unspecified; K21.9 Gastro-esophageal reflux disease without esophagitis; Z86.73 Personal history of transient ischemic attack (TIA), and cerebral infarction without residual deficits
CPT/HCPCS: 99283